=== PATIENT | male | born 1990 | race Two or more races ===

== ENCOUNTER 2024-09-29 00:43 | Emergency (ER) | payer OTHER ==
[~2024-09-29] VITALS: Ht 193 cm; Wt 82.6 kg
[2024-09-29 01:14] VITALS: BP 119/79; O2SAT 98
[2024-09-29] MEDS ORDERED: GENTAMICIN SULFATE 0.15 MG/DR DROPS 5ML OP STA (02:20)
[2024-09-29] MEDS ORDERED: NAPHAZOLINE HCL/PHENIRAMINE 20 DR/ML DROPS OP STA (02:21)
[2024-09-29] MEDS ORDERED: GENTAMICIN SULFA5 ML OP ×2 (02:36→02:38)
[2024-09-29] MEDS ORDERED: REDNESS RELIEF15 ML OPHT ×2 (02:37→02:38)
[2024-09-29] MEDS ORDERED: NAPHAZOLINE HCL/PHENIRAMINE 20 DR/ML DROPS OP ONE (02:41)
[2024-09-29] MEDS ORDERED: GENTAMICIN SULFATE 0.15 MG/DR DROPS 5ML OP ONE (02:41)
== END 2024-09-29 02:49 | disposition home or self-care (01) ==
LOC: ER 00:43
DX: H10.31 Unspecified acute conjunctivitis, right eye (principal)